=== PATIENT | male | born 1955 | race Caucasian/White ===

== ENCOUNTER 2019-06-01 14:14 | Outpatient (CLI) | payer BC ==
[2019-06-01 15:05] LABS: #Eosinphils 0.1 thou/uL (0.0-0.7); #Lymphocytes 1.8 thou/uL (1.20-3.40); #Monocytes 0.4 thou/uL (0.11-0.59); #Neutrophils 2.2 thou/uL (1.40-6.50); %Basophils 0.8 % (0.0-1.0); %Eosinophils 2.8 % (0.0-10.0); %Lymphocytes 38.6 % (21.0-51.0); %Monocytes 9.5 % (0.0-10.0); %Neutrophils 48.4 % (42.0-75.0); Hemoglobin 15.9 g/dL (14.0-18.0); Mean Corpuscular HGB CONC 33.4 g/dL (32.0-36.0); Mean Corpuscular Hemoglobin 31.4 pg (27.0-31.0); Mean Corpuscular Volume 94.1 fL (78.0-98.0); Mean Platelet Volume 7.6 fL (7.4-10.4); Platelet Count 167 thou/uL (130-400); RBC Distribution Width 12.1 % (11.5-14.5); Red Blood Cell (RBC) Count 5.05 mill/uL (4.70-6.10); White Blood Cell (WBC) Count 4.6 thou/uL (4.8-10.8)
[2019-06-01 15:23] LABS: Anion Gap 12 mmol/L (10-20); BUN (Urea Nitrogen) 27 mg/dL (8.4-25.7); Calc. Creatinine Clearance 0 mL/min (70-130); Calcium 9.3 mg/dL (7.8-10.44); Carbon Dioxide 27 mmol/L (23-31); Chloride 106 mmol/L (98-107); Estimated GFR-MDRD 85; Glucose 102 mg/dL (80-115); Potassium 4.1 mmol/L (3.5-5.1); Sodium 141 mmol/L (136-145)
--- NOTE | 2019-06-01 23:02 | EKG ---
Test Reason : Blood Pressure : / mmHG Vent. Rate : 070 BPM Atrial Rate : 070 BPM P-R Int : 128 ms QRS Dur : 086 ms QT Int : 410 ms P-R-T Axes : 036 094 -06 degrees QTc Int : 442 ms Normal sinus rhythm Rightward axis Abnormal ECG No previous ECGs available Confirmed by BLUE CARLSON, DR. Watts ([id number]) on 06/01/2019 11:02:04 PM Referred By: IERO Confirmed By:DR. Stefanie MCARTHUR MD
== END 2019-06-01 14:15 | disposition home or self-care (01) ==
LOC: LABBT 14:14
PROVIDERS: ATTEND Orthopaedic Surgery
DX: Z01.818 Encounter for other preprocedural examination (principal); S83.207A Unspecified tear of unspecified meniscus, current injury, left knee, initial encounter
CPT/HCPCS: 80048; 85025; 93005; 93010

== ENCOUNTER 2019-07-21 06:20 | Outpatient (CLI) | payer BC, OTHER ==
[2019-07-21 15:31] LABS: #Basophils 0.1 thou/uL (0.0-0.2); #Eosinphils 0.1 thou/uL (0.0-0.7); #Lymphocytes 1.6 thou/uL (1.20-3.40); #Monocytes 0.5 thou/uL (0.11-0.59); %Basophils 1.2 % (0.0-1.0); %Eosinophils 1.3 % (0.0-10.0); %Lymphocytes 25.7 % (21.0-51.0); %Monocytes 7.9 % (0.0-10.0); %Neutrophils 63.9 % (42.0-75.0); Hemoglobin 16.5 g/dL (14.0-18.0); Mean Corpuscular HGB CONC 32.5 g/dL (32.0-36.0); Mean Corpuscular Hemoglobin 31.3 pg (27.0-31.0); Mean Corpuscular Volume 96.1 fL (78.0-98.0); Platelet Count 174 thou/uL (130-400); RBC Distribution Width 11.8 % (11.5-14.5); Red Blood Cell (RBC) Count 5.29 mill/uL (4.70-6.10); White Blood Cell (WBC) Count 6.2 thou/uL (4.8-10.8)
[2019-07-21 15:51] LABS: Anion Gap 12 mmol/L (10-20); BUN (Urea Nitrogen) 28 mg/dL (8.4-25.7); Calc. Creatinine Clearance 0 mL/min (70-130); Calcium 9.4 mg/dL (7.8-10.44); Carbon Dioxide 28 mmol/L (23-31); Chloride 107 mmol/L (98-107); Estimated GFR-MDRD Greater than 90; Glucose 85 mg/dL (80-115); Potassium 4.1 mmol/L (3.5-5.1); Sodium 143 mmol/L (136-145)
[2019-07-22 10:55] LABS: SARS-CoV-2 MS2 Positive; SARS-CoV-2 N Gene Negative; SARS-CoV-2 S Gene Negative; SARS-CoV-2 orf1ab Negative
--- NOTE | 2019-07-25 16:08 | EKG ---
Test Reason : Blood Pressure : / mmHG Vent. Rate : 064 BPM Atrial Rate : 064 BPM P-R Int : 126 ms QRS Dur : 088 ms QT Int : 410 ms P-R-T Axes : 049 073 045 degrees QTc Int : 422 ms Normal sinus rhythm Normal ECG When compared with ECG of 01-JUN-2019 14:25, T wave inversion no longer evident in Inferior leads Confirmed by AMBER ROBBINS (2) on 07/25/2019 4:08:19 PM Referred By: JAIME Confirmed By:AMBER ROBBINS
== END 2019-07-21 06:21 | disposition home or self-care (01) ==
LOC: LABBT 06:20
PROVIDERS: ATTEND Orthopaedic Surgery
DX: Z01.818 Encounter for other preprocedural examination (principal); Z11.59 Encounter for screening for other viral diseases; S83.207A Unspecified tear of unspecified meniscus, current injury, left knee, initial encounter
CPT/HCPCS: 80048; 85025; 87635; 93005; 93010; U0003

== ENCOUNTER 2019-07-23 07:29 | Day surgery (SDC) | payer BC ==
[2019-07-21 15:30] VITALS: BMI 25.4
[2019-07-23] MEDS ORDERED: PROPOFOL 20 ML ONE (09:04)
[2019-07-23] MEDS ORDERED: Fentanyl 100 MCG/2 ML VIAL ONE (11:01)
[2019-07-23] MEDS ORDERED: Lidocaine 2% w/Epinephrine 1:200K 20 ML VIAL ONE (11:26)
[2019-07-23] MEDS ORDERED: PROPOFOL 200 MG/20 ML VIAL ONE (11:26)
[2019-07-23] MEDS ORDERED: Lidocaine 1% PF 5 ML VIAL ONE (11:26)
[2019-07-23] MEDS ORDERED: EPHEDRINE 25 MG/5 ML SYRINGE ONE (11:26)
[2019-07-23] MEDS ORDERED: Dexamethasone 20 MG/5 ML VIAL ONE (11:26)
[2019-07-23] MEDS ORDERED: Ondansetron PF 4 MG/2 ML Vial ONE (11:26)
[2019-07-23] MEDS ORDERED: Bupivacaine PF 0.5% 30 ML VIAL ONE (11:26)
[2019-07-23] MEDS ORDERED: HYDROcodone/Acetaminophen 5/325 mg Tablet ONE (13:16)
--- NOTE | 2019-07-23 23:54 | OP ---
DATE OF PROCEDURE: 07/23/2019 PREOPERATIVE DIAGNOSIS: Left knee degenerative meniscal tears with calcification. POSTOPERATIVE DIAGNOSIS: Degenerative medial and lateral meniscus, but not really with any tears. This was noted to have significant calcifications and hardening and diminution of the meniscus itself. The patient also had multiple areas of cartilage loss throughout the knee including the medial femoral condyle, the lateral femoral condyle, lateral tibial plateau, the trochlea, and the patella. The patient was also noted to have some significant crystal deposition in the cartilage as well as the meniscal tissues. PROCEDURE PERFORMED: Left knee arthroscopy with debridement and shaving. BRAKE TESTER: None. ANESTHESIA: The patient did have a general anesthetic as well as a local knee block. DISPOSITION: He went to recovery room in stable condition. COMPLICATIONS: There were no complications. INDICATIONS: A 64-year-old very active male, who comes in with complaints of catching, swelling, and pain in the knee. He has failed nonoperative treatment and wished to have a knee arthroscopy done despite knowing that he did have an underlying arthritic joint. DESCRIPTION OF PROCEDURE: After all appropriate consent forms were explained and signed, he was taken back to the operating room and at this time was given general anesthetic. Once the level of anesthesia was appropriate, a tourniquet was placed on the left thigh and leg was then placed in arthroscopic leg cazares. The limb was then prepped and draped in standard surgical fashion. Limb was exsanguinated, and tourniquet was taken to 300 mmHg. Inferolateral portal was established. Scope was placed into the knee joint. A needle localization technique was then used to make a medial working portal. Diagnostic arthroscopy commenced in the notch. ACL and PCL were probed, found to be intact. The medial compartment was evaluated. The medial femoral condyle had some significant chondral wear. There was no bare bone exposed, but the area where it was to a large area of the surface. The tibial plateau was in good condition overall. The medial meniscus did not show any tearing, but did have diminution and also multiple areas where there was calcium or gouty crystal buildup into the meniscus itself. The lateral compartment was entered, and there was significant amount of cartilage loss in the lateral tibial plateau pretty much to a global extent. There were some areas on the femur, which also had some significant cartilage loss. The edges of the meniscus itself were frayed, and there was some hypertrophic tissue noted underneath the posterior horn and all this was debrided back to stable base. Again, there were multiple areas of either uric acid or calcium crystals deposited in the meniscus. We then turned our attention to running through the gutters. Again, there were no loose bodies, but there was significant amount of synovitic tissue, which was debrided more so medially than laterally. We then evaluated the patellofemoral joint and found the trochlea to have pretty much in this entire central region devoid of any good cartilage. Again, there was noted areas of deposition in the cartilage itself. There were some unstable chondral flaps, which were debrided and the patella itself also had some significant changes especially in the inferior pole. Once everything had been debrided, we then went through the knee one more time, looking for any remaining loose pieces of cartilage, that were none. Therefore, scope was removed. Knee was drained. The portals were closed with simple nylon stitch. Bulky sterile dressing was then applied. Tourniquet was let down. Toes pinked up nicely. The patient was then awakened, taken to recovery room in stable condition. All counts were correct at the end of the case and he did receive preoperative IV antibiotics. Job ID: [id number]
== END 2019-07-23 14:10 | disposition home or self-care (01) ==
LOC: SDC 07:29
PROVIDERS: ATTEND Orthopaedic Surgery
PROC: 0SBD4ZZ Excision of Left Knee Joint, Percutaneous Endoscopic Approach (ICD-10-PCS; principal; 2019-07-23)
DX: M23.001 Cystic meniscus, unspecified lateral meniscus, left knee (principal); M23.004 Cystic meniscus, unspecified medial meniscus, left knee
CPT/HCPCS: J0690; J1100; J2001; J2405; J2704; J3010; S0020